=== PATIENT | male | born 1955 ===

== ENCOUNTER 2017-03-18 12:32 | Inpatient (IN) | payer MEDICAID ==
[2017-03-18 13:50] LABS: BASO % 0.2 % (0.0-2.0); EOS # 0.1 K/uL (0.0-0.7); EOS % 0.5 % (0.0-4.0); HEMATOCRIT 42.9 % (35.0-51.0); LYMPH # 0.6 K/uL (1.0-4.3); LYMPH % 3.6 % (20.0-40.0); MEAN CELL VOLUME 87.5 fL (80.0-94.0); MEAN CORPUSCULAR HEMOGLOBIN 29.4 pg (27.0-31.0); MEAN CORPUSCULAR HGB CONC 33.6 g/dL (33.0-37.0); MEAN PLATELET VOLUME 8.4 fL (7.2-11.7); MONO # 0.5 K/uL (0.0-0.8); MONO % 3.1 % (0.0-10.0); NRBC % 0.1 % (0.0-2.0); PLATELET COUNT 204 K/uL (130-400); RED CELL DISTRIBUTION WIDTH 13.5 % (11.5-14.5); WHITE BLOOD COUNT 17.3 K/uL (4.8-10.8)
[2017-03-18 13:54] LABS: RBC URINE 15 /hpf (0-3); URINE BACTERIA RARE (<OCC); URINE BILIRUBIN NEGATIVE (NEGATIVE); URINE BLOOD NEGATIVE (NEGATIVE); URINE CALCIUM OXALATE CRYSTALS FEW /hpf (<OCC); URINE COLOR Yellow (YELLOW); URINE GLUCOSE (UA) 3+ mg/dL (Normal); URINE KETONE NEGATIVE (NEGATIVE); URINE LEUKOCYTE ESTERASE 3+ Leu/uL (Negative); URINE PROTEIN 1+ mg/dL (NEGATIVE); URINE UROBILINOGEN NORMAL mg/dL (0.2-1.0); WBC URINE 235 /hpf (0-5)
[2017-03-18 13:56] LABS: CHLORIDE 96 mmol/L (98-107); POTASSIUM 3.5 mmol/L (3.6-5.2); SODIUM 136 mmol/L (132-148)
[2017-03-18 13:58] LABS: BILIRUBIN,TOTAL 1.2 mg/dL (0.2-1.3); GFR AFRICAN-AMERICAN > 60
[2017-03-18 13:59] LABS: ALB/GLOB RATIO 1.8 (1.0-2.1); ALKALINE PHOSPHATASE 80 U/L (38-126); ALT/SGPT 44 U/L (21-72); AST/SGOT 25 U/L (17-59); BLOOD UREA NITROGEN 20 mg/dL (9-20); CALCIUM 9.2 mg/dl (8.6-10.4); CARBON DIOXIDE 27 mmol/L (22-30); GLUCOSE,RANDOM 160 mg/dL (75-110); TOTAL PROTEIN 7.2 g/dL (6.3-8.3)
[2017-03-18 14:07] LABS: VENOUS BLOOD GAS BASE EXCESS -4.7 mmol/L (0.0-2.0); VENOUS BLOOD GAS PCO2 33 mmHg (40-60); VENOUS BLOOD PH 7.38 (7.32-7.43)
--- NOTE | 2017-03-18 14:17 | C.PDOC ---
History Of Present Illness 61 y/o male presents to the ED for evaluation of difficulty with urination/ dysuria for the past 3 days. Pt states that today he developed fever, nausea, and vomiting. He has hhistory of UTI with prior admission. Pt is also complaining of chronic back pain, currently worse. He denies chest pain, shortness of breath, cough, abdominal pain, flank pain, hematuria. Urologist: Dr. Cuellar Time Seen by Provider: 03/18/17 12:46 Chief Complaint (Nursing): Male Genitourinary History Per: Patient History/Exam Limitations: no limitations Onset/Duration Of Symptoms: Days (3) Current Symptoms Are (Timing): Still Present Severity: Moderate Associated Symptoms: Fever, Nausea, Vomiting, Back Pain, Urinary Symptoms. denies: Diarrhea, Loss Of Appetite, Chest Pain, Constipation Alleviating Factors: None Additional History Per: Patient Past Medical History Reviewed: Historical Data, Nursing Documentation, Vital Signs Vital Signs: Last Vital Signs Temp 98.2 F 03/21/17 15:05 Pulse 73 03/21/17 15:05 Resp 20 03/21/17 15:05 BP 137/82 03/21/17 15:05 Pulse Ox 95 03/21/17 15:05 - Medical History PMH: Arthritis, CHF, Dementia, HTN, Rheumatoid Arthritis, Sleep Apnea Surgical History: Cholecystectomy Family History: States: No Known Family Hx - Social History Hx Tobacco Use: No Hx Alcohol Use: No Hx Substance Use: No - Immunization History Hx Tetanus Toxoid Vaccination: No Hx Influenza Vaccination: Yes Hx Pneumococcal Vaccination: No Review Of Systems Except As Marked, All Systems Reviewed And Found Negative. Constitutional: Positive for: Fever, Chills Cardiovascular: Negative for: Chest Pain, Palpitations Respiratory: Negative for: Cough, Shortness of Breath Gastrointestinal: Positive for: Nausea, Vomiting. Negative for: Abdominal Pain , Diarrhea, Constipation, Hematemesis Genitourinary: Positive for: Dysuria. Negative for: Hematuria Musculoskeletal: Positive for: Back Pain Physical Exam - Physical Exam Appears: Non-toxic, Other (In mild discomfort, warm to the touch) Skin: Normal Color, Warm, Dry, No Rash Head: Normacephalic Eye(s): bilateral: Normal Inspection Oral Mucosa: Moist Neck: Normal ROM, Supple Cardiovascular: Rhythm Regular (tachycardic), No Murmur Respiratory: Normal Breath Sounds, No Rales, No Rhonchi, No Wheezing Gastrointestinal/Abdominal: Normal Exam, Bowel Sounds, Soft, No Tenderness, No Guarding, No Rebound Back: Normal Inspection, No CVA Tenderness, No Vertebral Tenderness Extremity: Normal ROM Neurological/Psych: Oriented x3 ED Course And Treatment - Laboratory Results Result Diagrams: 03/21/17 08:14 03/21/17 08:14 O2 Sat by Pulse Oximetry: 96 (on RA) Pulse Ox Interpretation: Normal - CT Scan/US Abd pelvis CT Other Rad Studies (CT/US): Read By Radiologist, Radiology Report Reviewed CT/US Interpretation: Findings: Scattered atelectasis within the visualized lung chang. Question 4 millimeter nodule/granuloma in the right lower lobe anteriorly. Small pericardial effusion. Enlarged liver with diffuse fatty infiltration. Coronary calcifications. Prior cholecystectomy. Prominent spleen. Adrenal glands are preserved. Pancreas preserved. Small hiatal hernia. Mild nonspecific thickening of the proximal stomach. Right kidney: Multiple hyperdense lesions noted throughout the kidney. For example, a partially exophytic lesion emanating off the upper pole measures up to 5 centimeters previously measuring up to 4.3 centimeters. This demonstrates a Hounsfield unit attenuation of 50. Multiple additional hyperdense lesions are noted throughout the kidney. These are of uncertain clinical etiology and may represent hemorrhagic cysts however additional lesions can't be excluded. Correlation with multiphasic CT or MR is recommended for further evaluation if clinically indicated. No hydronephrosis. Left Kidney: Multiple hyperdense lesions throughout the kidneys the largest of which is seen exophytically off the midpole measuring 3 centimeters demonstrating a Hounsfield unit attenuation of 64, indeterminate. Additional innumerable hyperdense lesions. Again these are of uncertain clinical etiology and may represent hemorrhagic cysts. No hydronephrosis. 8 millimeter lobulated calcification seen within the midpole of the left kidney and may be vascular. Underdistended and or mildly thickened urinary bladder. Prominent heterogeneous prostate with calcification measuring 6.3 x 5.3 centimeters. Moderate fecal retention in the colon. Appendix preserved. Few shotty para-aortic and mesenteric lymph nodes. Degenerative changes in the spine with paravertebral osteophytes. Impression: 1. Multiple hyperdense lesions noted throughout both kidneys. For example, a partially exophytic lesion emanating off the upper pole of the right kidney measures up to 5 centimeters previously measuring up to 4.3 centimeters. This demonstrates a Hounsfield unit attenuation of 50, inderterminate. These are of uncertain clinical etiology and may represent hemorrhagic cysts however additional lesions can't be excluded. Correlation with multiphasic CT or MR is recommended for further evaluation if clinically indicated. No hydronephrosis. 2. No hydronephrosis. 8 millimeter lobulated calcification seen within the midpole of the left kidney may be vascular. 3. Small hiatal hernia. Mild nonspecific thickening of the proximal stomach. 4. Small pericardial effusion. 5. Enlarged liver with diffuse fatty infiltration. 6. Underdistended and or mildly thickened urinary bladder. 7. Prominent heterogeneous prostate with calcification measuring 6.3 x 5.3 centimeters. Progress Note: Blood work, UA, Ucx ordered. Patient given IV NS bolus, IV toradol and IV rocephin. 3:45pm- Discussed patient with his urologist Dr. Cuellar, would like patient admitted to medicine, he will consult if needed. CT abd/pelvis ordered to evaluate for kidney stone. 5:45pm- Patient's CT scan (-) for obvious kidney stones. - Physician Consult Information Physician Contacted: Evan Liang Outcome Of Conversation: Discussed patient with Dr. Lorene Liang, he agrees with admission for pyelonephritis, renal cysts, fever. Urologist consult entered, Disposition - Disposition Disposition: HOSPITALIZED Disposition Time: 18:18 Condition: STABLE - Clinical Impression Clinical Impression: Pyelonephritis, Fever, Renal cyst - Scribe Statement The provider has reviewed the documentation as recorded by the Chalino Liang Provider Attestation: All medical record entries made by the Chalino were at my direction and personally dictated by me. I have reviewed the chart and agree that the record accurately reflects my personal performance of the history, physical exam, medical decision making, and the department course for this patient. I have also personally directed, reviewed, and agree with the discharge instructions and disposition. Decision To Admit - Pt Status Changed To: Hospital Disposition Of: Inpatient - Admit Certification Admit to Inpatient:: After my assessment, the patient will require hospitalization for at least two midnights. This is because of the severity of symptoms shown, intensity of services needed, and/or the medical risk in this patient being treated as an outpatient. - InPatient: Physician Admission Certification: I certify that this patient requires 2 or more midnights of care for the following reason:: see notes - . Bed Request Type: Regular Admitting Physician: Evan Liang Patient Diagnosis: Fever, Pyelonephritis, Renal cyst
[2017-03-18] MEDS ORDERED: cefTRIAXone IV 1 gm in Dextros 50 ML IVPB ONE (14:27)
[2017-03-18 14:49] LABS: EOSINOPHIL 1 % (0-4); NEUTROPHIL 92 % (50-75); TOTAL CELLS COUNTED 100
--- NOTE | 2017-03-18 17:37 | CT ---
CT abdomen and pelvis History: Abdominal pain. Fever. Evaluate for calculus. Comparison: 04/12/2014 Technique: Multiple contiguous axial images were performed through the abdomen and pelvis without the use of intravenous contrast. Subsequently, sagittal and coronal reformatted images were obtained. This CT exam was performed using one or more of the following dose reduction techniques: Automated exposure control, adjustment of the mA and/or kV according to patient size, and/or use of iterative reconstruction technique. Findings: Scattered atelectasis within the visualized lung chang. Question 4 millimeter nodule/granuloma in the right lower lobe anteriorly. Small pericardial effusion. Enlarged liver with diffuse fatty infiltration. Coronary calcifications. Prior cholecystectomy. Prominent spleen. Adrenal glands are preserved. Pancreas preserved. Small hiatal hernia. Mild nonspecific thickening of the proximal stomach. Right kidney: Multiple hyperdense lesions noted throughout the kidney. For example, a partially exophytic lesion emanating off the upper pole measures up to 5 centimeters previously measuring up to 4.3 centimeters. This demonstrates a Hounsfield unit attenuation of 50. Multiple additional hyperdense lesions are noted throughout the kidney. These are of uncertain clinical etiology and may represent hemorrhagic cysts however additional lesions can't be excluded. Correlation with multiphasic CT or MR is recommended for further evaluation if clinically indicated. No hydronephrosis. Left Kidney: Multiple hyperdense lesions throughout the kidneys the largest of which is seen exophytically off the midpole measuring 3 centimeters demonstrating a Hounsfield unit attenuation of 64, indeterminate. Additional innumerable hyperdense lesions. Again these are of uncertain clinical etiology and may represent hemorrhagic cysts. No hydronephrosis. 8 millimeter lobulated calcification seen within the midpole of the left kidney and may be vascular. Underdistended and or mildly thickened urinary bladder. Prominent heterogeneous prostate with calcification measuring 6.3 x 5.3 centimeters. Moderate fecal retention in the colon. Appendix preserved. Few shotty para-aortic and mesenteric lymph nodes. Degenerative changes in the spine with paravertebral osteophytes. Impression: 1. Multiple hyperdense lesions noted throughout both kidneys. For example, a partially exophytic lesion emanating off the upper pole of the right kidney measures up to 5 centimeters previously measuring up to 4.3 centimeters. This demonstrates a Hounsfield unit attenuation of 50, inderterminate. These are of uncertain clinical etiology and may represent hemorrhagic cysts however additional lesions can't be excluded. Correlation with multiphasic CT or MR is recommended for further evaluation if clinically indicated. No hydronephrosis. 2. No hydronephrosis. 8 millimeter lobulated calcification seen within the midpole of the left kidney may be vascular. 3. Small hiatal hernia. Mild nonspecific thickening of the proximal stomach. 4. Small pericardial effusion. 5. Enlarged liver with diffuse fatty infiltration. 6. Underdistended and or mildly thickened urinary bladder. 7. Prominent heterogeneous prostate with calcification measuring 6.3 x 5.3 centimeters.
[2017-03-18] MEDS ORDERED: Potassium Chloride 20 mEq ER Tab PO ONE (19:15)
[2017-03-18] MEDS ORDERED: hydrALAZINE 12.5 mg Tab PO SCH (22:00)
[2017-03-19 00:37] VITALS: RESP 20
[2017-03-19 08:10] LABS: RBC URINE 1 /hpf (0-3); URINE BILIRUBIN NEGATIVE (NEGATIVE); URINE BLOOD NEGATIVE (NEGATIVE); URINE COLOR Yellow (YELLOW); URINE GLUCOSE (UA) 3+ mg/dL (Normal); URINE KETONE NEGATIVE (NEGATIVE); URINE LEUKOCYTE ESTERASE TRACE Leu/uL (Negative); URINE PROTEIN 1+ mg/dL (NEGATIVE); URINE UROBILINOGEN NORMAL mg/dL (0.2-1.0); WBC URINE 11 /hpf (0-5)
[2017-03-19] MEDS ORDERED: Moxifloxacin IV 400mg/250ml NS 400 MG/250 ML BAG IVPB SCH (09:15)
[2017-03-19] MEDS: Enoxaparin 40 mg Syringe SC SCH (09:52)
[2017-03-19] MEDS: Pantoprazole 40 mg EC Tab PO SCH (09:54)
[2017-03-19] MEDS: NIFEdipine 60 mg ER Tab PO SCH (09:56)
[2017-03-19] MEDS: Moxifloxacin IV 400mg/250ml NS 400 MG/250 ML BAG IVPB SCH (13:35)
--- NOTE | 2017-03-19 14:50 | CP.PCM.HP ---
History of Present Illness - History of Present Illness History of Present Illness: 61-year-old male patient with past medical history of arthritis, CHF, hypertension, sleep apnea, who presented to the ED for evaluation of difficulty with urination/dysuria for the past 3 days. Patient states that today he developed fever, nausea and vomiting. Patient has history of UTI with prior admission. Patient also complaining of chronic back pain, currently worse. Denies chest pain, shortness of breath, cough, abdominal pain, flank pain, hematuria. Present on Admission - Present on Admission Any Indicators Present on Admission: No Past Patient History - Infectious Disease Hx of Infectious Diseases: None - Past Medical History & Family History Past Medical History?: Yes - Past Social History Smoking Status: Never Smoked - CARDIAC Hx Cardiac Disorders: Yes Hx Congestive Heart Failure: Yes Hx Hypertension: Yes - PULMONARY Hx Respiratory Disorders: Yes Hx Sleep Apnea: Yes - NEUROLOGICAL Hx Neurological Disorder: Yes Hx Dementia: Yes - HEENT Hx HEENT Problems: No - RENAL Hx Chronic Kidney Disease: No - ENDOCRINE/METABOLIC Hx Endocrine Disorders: No Hx Diabetes Mellitus Type 2: No - HEMATOLOGICAL/ONCOLOGICAL Hx Blood Disorders: No - INTEGUMENTARY Hx Dermatological Problems: No - MUSCULOSKELETAL/RHEUMATOLOGICAL Hx Musculoskeletal Disorders: Yes Hx Arthritis: Yes Hx Falls: No Hx Rheumatoid Arthritis: Yes - GASTROINTESTINAL Hx Gastrointestinal Disorders: Yes Other/Comment: hernia repair - GENITOURINARY/GYNECOLOGICAL Hx Genitourinary Disorders: Yes Hx Prostate Problems: Yes - PSYCHIATRIC Hx Psychophysiologic Disorder: No Hx Substance Use: No - SURGICAL HISTORY Hx Surgeries: Yes Hx Cholecystectomy: Yes - ANESTHESIA Hx Anesthesia: Yes Hx Anesthesia Reactions: No Hx Malignant Hyperthermia: No Has any member of the family had a problem w/ anesthesia?: No Meds Allergies/Adverse Reactions: Allergies Allergy/AdvReac Type Severity Reaction Status Date / Time No Known Allergies Allergy Verified 04/10/17 08:05 Physical Exam - Constitutional Appears: Well - Head Exam Head Exam: ATRAUMATIC, NORMAL INSPECTION, NORMOCEPHALIC - Eye Exam Eye Exam: EOMI, Normal appearance, PERRL Pupil Exam: NORMAL ACCOMODATION, PERRL - ENT Exam ENT Exam: Mucous Membranes Moist, Normal Exam - Neck Exam Neck exam: Positive for: Normal Inspection - Respiratory Exam Respiratory Exam: Decreased Breath Sounds - Cardiovascular Exam Cardiovascular Exam: REGULAR RHYTHM, +S1, +S2 - GI/Abdominal Exam GI & Abdominal Exam: Diminished Bowel Sounds, Soft - Rectal Exam Rectal Exam: Deferred Results - Vital Signs Recent Vital Signs: Last Vital Signs Temp 99.1 F 03/19/17 08:31 Pulse 97 H 03/19/17 08:31 Resp 20 03/19/17 08:31 BP 144/76 03/19/17 08:31 Pulse Ox 95 03/19/17 08:31 - Labs Result Diagrams: 03/21/17 08:14 03/21/17 08:14 Labs: Laboratory Results - last 24 hr 03/19/17 07:39 Urine Color Yellow Urine Clarity Clear Urine pH 7.0 Ur Specific [place] 1.016 Urine Protein 1+ H Urine Glucose (UA) 3+ H Urine Ketones Negative Urine Blood Negative Urine Nitrate Negative Urine Bilirubin Negative Urine Urobilinogen Normal Ur Leukocyte Esterase Trace Urine WBC (Auto) 11 H Urine RBC (Auto) 1 Assessment & Plan (1) Acute diarrhea Status: Acute (2) Cough Status: Acute (3) Diarrhea Status: Acute (4) Fever Status: Acute Priority: High (5) Hematuria Status: Acute (6) Leukocytosis Status: Acute (7) Pneumonia Status: Acute (8) Prophylactic measure Status: Acute (9) Pyelonephritis Status: Acute (10) Renal cyst Status: Acute (11) Sepsis Status: Acute (12) UTI (urinary tract infection) Status: Acute (13) BPH (benign prostatic hyperplasia) Status: Chronic (14) Chronic back pain Status: Chronic (15) Diabetes mellitus Status: Chronic (16) Hypertension Status: Chronic (17) Sleep apnea Status: Chronic - Assessment and Plan (Free Text) Plan: Consult urologist Tylenol Aricept Lovenox Apresoline Avelox Namenda Procardia Percocet
[2017-03-19] MEDS: Oxycodone/Acetaminophen 5/325 mg Tab PO SCH (22:05)
[2017-03-20] MEDS: NIFEdipine 60 mg ER Tab PO SCH (09:49)
[2017-03-20] MEDS: Oxycodone/Acetaminophen 5/325 mg Tab PO SCH ×2 (09:50→21:42)
[2017-03-20] MEDS: Enoxaparin 40 mg Syringe SC SCH (09:50)
[2017-03-20] MEDS: Pantoprazole 40 mg EC Tab PO SCH (10:00)
--- NOTE | 2017-03-20 12:46 | CP.PCM.PN ---
Subjective - Date & Time of Evaluation Date of Evaluation: 03/20/17 Time of Evaluation: 12:42 - Subjective Subjective: UROLOGY Pt sween today on iv antibiotics for uti. He has no fever at this time. I would suggest to cont iv meds till the wbc count normalize then disch and cont po antibiotics Objective - Vital Signs/Intake and Output Vital Signs (last 24 hours): Temp Pulse Resp BP Pulse Ox 98.6 F 80 20 156/76 H 94 L 03/20/17 08:29 03/20/17 08:29 03/20/17 08:29 03/20/17 08:29 03/20/17 08:29 - Medications Medications: Current Medications Acetaminophen (Tylenol 325mg Tab) 650 mg PO Q6 PRN PRN Reason: Fever >100.4 F Last Admin: 03/19/17 20:29 Dose: 650 mg Aspirin (Aspirin Chewable) 81 mg PO DAILY [facility] Last Admin: 03/20/17 09:49 Dose: 81 mg Donepezil HCl (Aricept) 5 mg PO HS [facility] Last Admin: 03/19/17 22:05 Dose: 5 mg Enoxaparin Sodium (Lovenox) 40 mg SC DAILY [facility] Last Admin: 03/20/17 09:50 Dose: 40 mg Hydralazine HCl (Apresoline) 50 mg PO BID [facility] Last Admin: 03/20/17 09:49 Dose: 50 mg Moxifloxacin HCl (Avelox Iv 400mg/250ml Ns) 400 mg in 250 mls @ 167 mls/hr IVPB Q24H [facility] Last Admin: 03/19/17 13:35 Dose: 167 mls/hr Memantine (Namenda) 5 mg PO DAILY [facility] Last Admin: 03/20/17 09:50 Dose: 5 mg Nifedipine (Procardia Xl) 60 mg PO DAILY [facility] Last Admin: 03/20/17 09:49 Dose: 60 mg Oxycodone/Acetaminophen (Percocet 5/325 Mg Tab) 1 tab PO Q12 [facility] Stop: 03/22/17 22:01 Last Admin: 03/20/17 09:50 Dose: 1 tab Pantoprazole Sodium (Protonix Ec Tab) 40 mg PO DAILY [facility] Last Admin: 03/20/17 10:00 Dose: 40 mg Phenazopyridine HCl (Pyridium) 200 mg PO TID [facility] Last Admin: 03/20/17 09:49 Dose: 200 mg Tamsulosin HCl (Flomax) 0.4 mg PO DAILY [facility] Last Admin: 03/20/17 09:50 Dose: 0.4 mg
[2017-03-20] MEDS: Moxifloxacin IV 400mg/250ml NS 400 MG/250 ML BAG IVPB SCH (14:19)
--- NOTE | 2017-03-20 18:12 | CP.PCM.PN ---
Subjective - Date & Time of Evaluation Date of Evaluation: 03/20/17 Time of Evaluation: 08:00 - Subjective Subjective: clinically same Objective - Vital Signs/Intake and Output Vital Signs (last 24 hours): Temp Pulse Resp BP Pulse Ox 99.7 F H 74 20 150/81 95 03/20/17 15:00 03/20/17 15:00 03/20/17 15:00 03/20/17 15:00 03/20/17 15:00 - Medications Medications: Current Medications Acetaminophen (Tylenol 325mg Tab) 650 mg PO Q6 PRN PRN Reason: Fever >100.4 F Last Admin: 03/19/17 20:29 Dose: 650 mg Aspirin (Aspirin Chewable) 81 mg PO DAILY [facility] Last Admin: 03/20/17 09:49 Dose: 81 mg Donepezil HCl (Aricept) 5 mg PO HS [facility] Last Admin: 03/19/17 22:05 Dose: 5 mg Enoxaparin Sodium (Lovenox) 40 mg SC DAILY [facility] Last Admin: 03/20/17 09:50 Dose: 40 mg Hydralazine HCl (Apresoline) 50 mg PO BID [facility] Last Admin: 03/20/17 17:43 Dose: 50 mg Moxifloxacin HCl (Avelox Iv 400mg/250ml Ns) 400 mg in 250 mls @ 167 mls/hr IVPB Q24H [facility] Last Admin: 03/20/17 14:19 Dose: 167 mls/hr Memantine (Namenda) 5 mg PO DAILY [facility] Last Admin: 03/20/17 09:50 Dose: 5 mg Nifedipine (Procardia Xl) 60 mg PO DAILY [facility] Last Admin: 03/20/17 09:49 Dose: 60 mg Oxycodone/Acetaminophen (Percocet 5/325 Mg Tab) 1 tab PO Q12 [facility] Stop: 03/22/17 22:01 Last Admin: 03/20/17 09:50 Dose: 1 tab Pantoprazole Sodium (Protonix Ec Tab) 40 mg PO DAILY [facility] Last Admin: 03/20/17 10:00 Dose: 40 mg Phenazopyridine HCl (Pyridium) 200 mg PO TID [facility] Last Admin: 03/20/17 17:44 Dose: 200 mg Tamsulosin HCl (Flomax) 0.4 mg PO DAILY [facility] Last Admin: 03/20/17 09:50 Dose: 0.4 mg - Constitutional Appears: Well - Head Exam Head Exam: ATRAUMATIC, NORMAL INSPECTION, NORMOCEPHALIC - Eye Exam Eye Exam: EOMI, Normal appearance, PERRL Pupil Exam: NORMAL ACCOMODATION, PERRL - ENT Exam ENT Exam: Mucous Membranes Moist, Normal Exam - Neck Exam Neck Exam: Full ROM, Normal Inspection. absent: Lymphadenopathy - Respiratory Exam Respiratory Exam: Decreased Breath Sounds - Cardiovascular Exam Cardiovascular Exam: REGULAR RHYTHM, +S1, +S2 - GI/Abdominal Exam GI & Abdominal Exam: Soft, Diminished Bowel Sounds - Rectal Exam Rectal Exam: Deferred Assessment and Plan (1) Acute diarrhea Status: Acute (2) Cough Status: Acute (3) Diarrhea Status: Acute (4) Fever Status: Acute (5) Hematuria Status: Acute (6) Leukocytosis Status: Acute (7) Pneumonia Status: Acute (8) Prophylactic measure Status: Acute (9) Pyelonephritis Status: Acute (10) Renal cyst Status: Acute (11) Sepsis Status: Acute (12) UTI (urinary tract infection) Status: Acute (13) BPH (benign prostatic hyperplasia) Status: Chronic (14) Chronic back pain Status: Chronic (15) Diabetes mellitus Status: Chronic (16) Hypertension Status: Chronic (17) Sleep apnea Status: Chronic - Assessment and Plan (Free Text) Plan: Consult urologist Tylenol Aricept Lovenox Apresoline Avelox Namenda Procardia Percocet
[2017-03-21 08:23] LABS: BASO # 0.1 K/uL (0.0-0.2); BASO % 0.5 % (0.0-2.0); EOS # 0.3 K/uL (0.0-0.7); EOS % 2.3 % (0.0-4.0); HEMATOCRIT 43.1 % (35.0-51.0); LYMPH # 3.2 K/uL (1.0-4.3); LYMPH % 23.9 % (20.0-40.0); MEAN CELL VOLUME 88.6 fL (80.0-94.0); MEAN CORPUSCULAR HEMOGLOBIN 29.4 pg (27.0-31.0); MEAN CORPUSCULAR HGB CONC 33.2 g/dL (33.0-37.0); MEAN PLATELET VOLUME 8.5 fL (7.2-11.7); MONO # 0.8 K/uL (0.0-0.8); MONO % 6.1 % (0.0-10.0); NRBC % 0.1 % (0.0-2.0); RED CELL DISTRIBUTION WIDTH 13.4 % (11.5-14.5); WHITE BLOOD COUNT 13.3 K/uL (4.8-10.8)
[2017-03-21 08:51] LABS: CHLORIDE 99 mmol/L (98-107); POTASSIUM 3.6 mmol/L (3.6-5.2); SODIUM 139 mmol/L (132-148)
[2017-03-21 08:53] LABS: AST/SGOT 18 U/L (17-59); CARBON DIOXIDE 27 mmol/L (22-30); GFR AFRICAN-AMERICAN > 60
[2017-03-21 08:54] LABS: ALB/GLOB RATIO 1.2 (1.0-2.1); ALKALINE PHOSPHATASE 75 U/L (38-126); ALT/SGPT 21 U/L (21-72); BLOOD UREA NITROGEN 13 mg/dL (9-20); CALCIUM 8.5 mg/dl (8.6-10.4); GLUCOSE,RANDOM 167 mg/dL (75-110); TOTAL PROTEIN 7.1 g/dL (6.3-8.3)
[2017-03-21] MEDS: Oxycodone/Acetaminophen 5/325 mg Tab PO SCH ×2 (10:18→14:16)
[2017-03-21] MEDS: NIFEdipine 60 mg ER Tab PO SCH (10:20)
[2017-03-21] MEDS: Pantoprazole 40 mg EC Tab PO SCH (10:21)
[2017-03-21] MEDS: Enoxaparin 40 mg Syringe SC SCH (10:34)
--- NOTE | 2017-03-21 10:54 | CP.PCM.PN ---
Subjective - Date & Time of Evaluation Date of Evaluation: 03/21/17 Time of Evaluation: 08:20 - Subjective Subjective: clinically same Objective - Vital Signs/Intake and Output Vital Signs (last 24 hours): Temp Pulse Resp BP Pulse Ox 98.5 F 87 20 126/63 95 03/21/17 08:33 03/21/17 08:33 03/21/17 08:33 03/21/17 08:33 03/21/17 08:33 Intake and Output: 03/21/17 03/21/17 06:59 18:59 Intake Total 360 240 Balance 360 240 - Medications Medications: Current Medications Acetaminophen (Tylenol 325mg Tab) 650 mg PO Q6 PRN PRN Reason: Fever >100.4 F Last Admin: 03/19/17 20:29 Dose: 650 mg Aspirin (Aspirin Chewable) 81 mg PO DAILY [facility] Last Admin: 03/21/17 10:34 Dose: 81 mg Donepezil HCl (Aricept) 5 mg PO HS [facility] Last Admin: 03/20/17 21:45 Dose: 5 mg Enoxaparin Sodium (Lovenox) 40 mg SC DAILY [facility] Last Admin: 03/21/17 10:34 Dose: 40 mg Hydralazine HCl (Apresoline) 50 mg PO BID [facility] Last Admin: 03/21/17 10:34 Dose: 50 mg Moxifloxacin HCl (Avelox Iv 400mg/250ml Ns) 400 mg in 250 mls @ 167 mls/hr IVPB Q24H [facility] Last Admin: 03/20/17 14:19 Dose: 167 mls/hr Memantine (Namenda) 5 mg PO DAILY [facility] Last Admin: 03/20/17 09:50 Dose: 5 mg Nifedipine (Procardia Xl) 60 mg PO DAILY [facility] Last Admin: 03/20/17 09:49 Dose: 60 mg Oxycodone/Acetaminophen (Percocet 5/325 Mg Tab) 1 tab PO Q12 [facility] Stop: 03/22/17 22:01 Last Admin: 03/20/17 21:42 Dose: 1 tab Pantoprazole Sodium (Protonix Ec Tab) 40 mg PO DAILY [facility] Last Admin: 03/20/17 10:00 Dose: 40 mg Phenazopyridine HCl (Pyridium) 200 mg PO TID [facility] Last Admin: 03/20/17 17:44 Dose: 200 mg Tamsulosin HCl (Flomax) 0.4 mg PO DAILY [facility] Last Admin: 03/21/17 10:34 Dose: 0.4 mg - Labs Labs: 03/21/17 08:14 03/21/17 08:14 - Constitutional Appears: Well - Head Exam Head Exam: ATRAUMATIC, NORMAL INSPECTION, NORMOCEPHALIC - Eye Exam Eye Exam: EOMI, Normal appearance, PERRL Pupil Exam: NORMAL ACCOMODATION, PERRL - ENT Exam ENT Exam: Mucous Membranes Moist, Normal Exam - Neck Exam Neck Exam: Full ROM, Normal Inspection. absent: Lymphadenopathy - Respiratory Exam Respiratory Exam: Decreased Breath Sounds - Cardiovascular Exam Cardiovascular Exam: REGULAR RHYTHM, +S1, +S2 - GI/Abdominal Exam GI & Abdominal Exam: Soft, Diminished Bowel Sounds - Rectal Exam Rectal Exam: Deferred Assessment and Plan (1) Acute diarrhea Status: Acute (2) Cough Status: Acute (3) Diarrhea Status: Acute (4) Fever Status: Acute (5) Hematuria Status: Acute (6) Leukocytosis Status: Acute (7) Pneumonia Status: Acute (8) Prophylactic measure Status: Acute (9) Pyelonephritis Status: Acute (10) Renal cyst Status: Acute (11) Sepsis Status: Acute (12) UTI (urinary tract infection) Status: Acute (13) BPH (benign prostatic hyperplasia) Status: Chronic (14) Chronic back pain Status: Chronic (15) Diabetes mellitus Status: Chronic (16) Hypertension Status: Chronic (17) Sleep apnea Status: Chronic - Assessment and Plan (Free Text) Plan: Patient can be discharged today Continue Cipro for 1 week Follow-up with Dr. Cuellar at office in 1 week
[2017-03-21] MEDS: Moxifloxacin IV 400mg/250ml NS 400 MG/250 ML BAG IVPB SCH (14:09)
[2017-03-21 15:55] VITALS: BP 137/82; PULSE 73; TEMP 98.2
--- NOTE | 2017-03-21 17:52 | CP.PCM.PN ---
Subjective - Date & Time of Evaluation Date of Evaluation: 03/21/17 Time of Evaluation: 17:52 - Subjective Subjective: 61 y/o male seen and examined by Dr Liang PMH: Arthritis, CHF, Dementia, HTN, Rheumatoid Arthritis, Sleep Apnea Surgical History: Cholecystectomy Admitted for Dysuria, UTI WBC trending down Cipro PO for one week as per Dr. Cuellar F/u with Dr Cuellar in the office in one week for repeat cbc Pt agree, verbalize understanding Objective - Vital Signs/Intake and Output Vital Signs (last 24 hours): Temp Pulse Resp BP Pulse Ox 98.2 F 73 20 137/82 95 03/21/17 15:05 03/21/17 15:05 03/21/17 15:05 03/21/17 15:05 03/21/17 15:05 Intake and Output: 03/21/17 03/21/17 06:59 18:59 Intake Total 360 240 Balance 360 240 - Medications Medications: Current Medications Acetaminophen (Tylenol 325mg Tab) 650 mg PO Q6 PRN PRN Reason: Fever >100.4 F Last Admin: 03/19/17 20:29 Dose: 650 mg Aspirin (Aspirin Chewable) 81 mg PO DAILY [facility] Last Admin: 03/21/17 10:34 Dose: 81 mg Donepezil HCl (Aricept) 5 mg PO HS [facility] Last Admin: 03/20/17 21:45 Dose: 5 mg Enoxaparin Sodium (Lovenox) 40 mg SC DAILY [facility] Last Admin: 03/21/17 10:34 Dose: 40 mg Hydralazine HCl (Apresoline) 50 mg PO BID [facility] Last Admin: 03/21/17 17:19 Dose: 50 mg Moxifloxacin HCl (Avelox Iv 400mg/250ml Ns) 400 mg in 250 mls @ 167 mls/hr IVPB Q24H [facility] Last Admin: 03/21/17 14:09 Dose: 167 mls/hr Memantine (Namenda) 5 mg PO DAILY [facility] Last Admin: 03/21/17 10:19 Dose: 5 mg Nifedipine (Procardia Xl) 60 mg PO DAILY [facility] Last Admin: 03/21/17 10:20 Dose: 60 mg Oxycodone/Acetaminophen (Percocet 5/325 Mg Tab) 1 tab PO Q12 AILYN Stop: 03/22/17 22:01 Last Admin: 03/21/17 10:18 Dose: Not Given Pantoprazole Sodium (Protonix Ec Tab) 40 mg PO DAILY [facility] Last Admin: 03/21/17 10:21 Dose: 40 mg Phenazopyridine HCl (Pyridium) 200 mg PO TID [facility] Last Admin: 03/21/17 17:19 Dose: 200 mg Tamsulosin HCl (Flomax) 0.4 mg PO DAILY [facility] Last Admin: 03/21/17 10:34 Dose: 0.4 mg - Labs Labs: 03/21/17 08:14 03/21/17 08:14
[2017-03-31 08:35] VITALS: O2SAT 96
== END 2017-03-21 18:25 | disposition home or self-care (01) | DRG 320 ==
LOC: C.ER 12:32 → C.3T 18:18
PROVIDERS: ADMIT Internal Medicine Nephrology; ATTEND Internal Medicine Nephrology
DX: N39.0 Urinary tract infection, site not specified (principal); I11.0 Hypertensive heart disease with heart failure; I50.9 Heart failure, unspecified; G47.30 Sleep apnea, unspecified; M06.9 Rheumatoid arthritis, unspecified; M19.90 Unspecified osteoarthritis, unspecified site; Z90.49 Acquired absence of other specified parts of digestive tract